=== PATIENT | female | born 1985 | race American Indian/Alaskan Native ===

== ENCOUNTER 2022-03-05 16:29 | Inpatient (IN) | payer MEDICAID ==
[2022-03-05] MEDS ORDERED: miSOPROStol 200 MCG TAB PR PRN (17:19)
[2022-03-05] MEDS ORDERED: LOPERAMIDE 2 MG CAP PO PRN (17:19)
[2022-03-05] MEDS ORDERED: ACETAMINOPHEN 325 MG TAB PO PRN (17:19)
[2022-03-05] MEDS ORDERED: LIDOCAINE (2%) 20 MG/1 ML VIAL 20 ML MDV INFILTRATI ONE (17:19)
[2022-03-05] MEDS ORDERED: METHYLERGONOVINE MALEATE 0.2 MG/ML VIAL IM PRN (17:19)
[2022-03-05] MEDS ORDERED: CARBOPROST TROMETHAMINE 250 MCG/1 ML INJ IM PRN (17:19)
[2022-03-05] MEDS ORDERED: fentaNYL 100 MCG/2 ML INJ IV PRN (17:19)
[2022-03-05] MEDS ORDERED: OXYTOCIN 10 UNIT/1 ML INJ IM PRN (17:19)
[2022-03-05] MEDS ORDERED: NalbUPHINE 10 MG/1 ML INJ IV PRN (17:19)
[2022-03-05] MEDS ORDERED: TERBUTALINE 1 MG/1 ML INJ SUB-Q PRN (17:19)
[2022-03-05] MEDS ORDERED: ePHEDrine SULFATE 50 MG/1 ML INJ IV PRN (17:19)
[2022-03-05] MEDS ORDERED: MINERAL OIL 30 ML ORAL LIQD PO PRN (17:19)
[2022-03-05] MEDS ORDERED: BUTORPHANOL 2 MG/1 ML INJ IV PRN ×2 (17:19)
[2022-03-05] MEDS ORDERED: ONDANSETRON 4 MG/2 ML INJ IV PRN ×2 (17:19→21:07)
[2022-03-05] MEDS ORDERED: LACTATED RINGERS 1,000 ML IV SCH (17:45)
[2022-03-05] MEDS ORDERED: OXYTOCIN DRIP 30 UNITS/500 ML BAG IV SCH ×3 (18:00→21:07)
[2022-03-05] MEDS ORDERED: AMPICILLIN/NS 1 GM/50 ML 1 GM/50 ML BAG IV SCH (18:00)
[2022-03-05] MEDS ORDERED: AMPICILLIN/NS 2 GM/100 ML 2 GM/100 ML BAG IV ONE ×2 (18:13→18:30)
[2022-03-05 18:49] LABS: Hematocrit 27.9 % (30.3-42.9); Hemoglobin 8.8 gm/dl (10.1-14.3)
--- NOTE | 2022-03-05 19:02 | Ultrasound Report ---
OB ultrasound Biophysical profile INDICATION: No care FINDINGS: Biophysical profile 8 out of 8 with normal heart rate 137. There is a single live int rauterine in cephalic position. FREEDOM measures 21.1 appears normal. Cervical length 2 cm. Gra de 2 placenta. Placenta is anterior and right lateral. Ultrasound age 35 weeks 4 days. Clinical age 39 weeks 4 days. Estimated weight 29 24 g. Within the cervix and may be some mild funneling identified. IMPRESSION: 1. Single live intrauterine in cephalic position. Ultrasound age 35 weeks 4 days with clini analia age 39 weeks 4 days. 2. Mild funneling of the internal os/cervix is suggested. Clinical correlation and evaluation with OB /BIOPROCESSING MANUFACTURING TECHNICIAN. Signer Name: Torrey Zhou MD Signed: 03/05/2022 6:58 PM Workstation Name: [id number]
--- NOTE | 2022-03-05 19:02 | Ultrasound Report ---
OB ultrasound Biophysical profile INDICATION: No care FINDINGS: Biophysical profile 8 out of 8 with normal heart rate 137. There is a single live int rauterine in cephalic position. FREEDOM measures 21.1 appears normal. Cervical length 2 cm. Gra de 2 placenta. Placenta is anterior and right lateral. Ultrasound age 35 weeks 4 days. Clinical age 39 weeks 4 days. Estimated weight 29 24 g. Within the cervix and may be some mild funneling identified. IMPRESSION: 1. Single live intrauterine in cephalic position. Ultrasound age 35 weeks 4 days with clini analia age 39 weeks 4 days. 2. Mild funneling of the internal os/cervix is suggested. Clinical correlation and evaluation with OB /MUTUAL FUND SALES AGENT. Signer Name: Torrey Zhou MD Signed: 03/05/2022 6:58 PM Workstation Name: [id number]
[2022-03-05 19:23] LABS: Hepatitis C Virus Antibody Non-Reactive (NonReactive)
--- NOTE | 2022-03-05 19:32 | History and Physical Report ---
History of Present Illness Date of examination: 03/05/22 Date of admission: 03/05/22 16:30 Chief complaint: LOF and ctx History of present illness: at 39.4wks by EDC 03/08/2022 by pt report, care in [facility]. Pt c/o LOF that started earlier today and now with painful ctx; denies vag bleed or headache. pt admits to movement. PT also states that she had high BP with her last preg. Pt also states she quit smoking 5months ago. Past History Past Medical History: no pertinent history Past Surgical History: no surgical history Social history: no significant social history - Obstetrical History Expected Date of Delivery: 03/08/22 Actual Gestation: 39 Week(s) 4 Day(s) : 6 Number of Living Children: 5 Medications and Allergies Allergies Allergy/AdvReac Type Severity Reaction Status Date / Time No Known Allergies Allergy Unverified 03/05/22 17:18 Active Meds: Active Medications Acetaminophen (Acetaminophen 325 Mg Tab) 650 mg PO Q4H PRN PRN Reason: Pain, Mild (1-3) Butorphanol Tartrate (Butorphanol 2 Mg/1 Ml Inj) 1 mg IV Q2H PRN PRN Reason: Pain, Moderate(4-6) LABOR PAIN Butorphanol Tartrate (Butorphanol 2 Mg/1 Ml Inj) 2 mg IV Q2H PRN PRN Reason: Pain , Severe (7-10) Carboprost Tromethamine (Carboprost Tromethamine 250 Mcg/1 Ml Inj) 250 mcg IM ONCE PRN PRN Reason: Uterine Bleeding Ephedrine Sulfate (Ephedrine Sulfate 50 Mg/1 Ml Inj) 10 mg IV Q2M PRN PRN Reason: Hypotension Fentanyl (Fentanyl 100 Mcg/2 Ml Inj) 100 mcg IV Q2H PRN PRN Reason: Pain,Severe (7-10) LABOR PAIN Oxytocin/Sodium Chloride (Pitocin/Ns 30 Unit/500ml) 30 units in 500 mls @ 2 mls/hr IV TITR TOM; Protocol Lactated Ringer's (Lactated Ringers) 1,000 mls @ 125 mls/hr IV DIRECT TOM Last Admin: 03/05/22 18:05 Dose: 125 mls/hr Oxytocin/Sodium Chloride (Pitocin/Ns 30 Unit/500ml) 30 units in 500 mls @ 40 mls/hr IV TITR TOM; Protocol Ampicillin Sodium (Ampicillin/Ns 1 Gm/50 Ml) 1 gm in 50 mls @ 100 mls/hr IV Q4H TOM; Protocol Ampicillin Sodium (Ampicillin/Ns 2 Gm/100 Ml) 2 gm in 100 mls @ 100 mls/hr IV ONCE ONE; Protocol Stop: 03/05/22 19:29 Loperamide HCl (Loperamide 2 Mg Cap) 2 mg PO ONCE PRN PRN Reason: give with Hemabate Methylergonovine Maleate (Methylergonovine Maleate 0.2 Mg/Ml Vial) 0.2 mg IM ONCE PRN PRN Reason: Uterine Bleeding Mineral Oil (Mineral Oil 30 Ml Oral Liqd) 30 ml PO QHS PRN PRN Reason: Constipation Misoprostol (Misoprostol 200 Mcg Tab) 800 mcg NE ONCE PRN PRN Reason: Uterine Bleeding Nalbuphine HCl (Nalbuphine 10 Mg/1 Ml Inj) 10 mg IV Q2H PRN PRN Reason: Pain, Moderate (4-6) Ondansetron HCl (Ondansetron 4 Mg/2 Ml Inj) 4 mg IV Q8H PRN PRN Reason: Nausea And Vomiting Oxytocin (Oxytocin 10 Unit/1 Ml Inj) 10 unit IM ONCE PRN PRN Reason: Uterine Bleeding Terbutaline Sulfate (Terbutaline 1 Mg/1 Ml Inj) 0.25 mg SUB-Q ONCE PRN PRN Reason: Hyperstimulation/Hypertonicity Review of Systems All systems: negative (LOF and ctx) - Vital Signs Vital signs: Vital Signs Pulse Pulse Ox 75 100 03/05/22 17:05 03/05/22 17:05 Temp Pulse Resp BP Pulse Ox 98.2 F 67 16 140/90 100 03/05/22 17:43 03/05/22 19:25 03/05/22 17:43 03/05/22 19:22 03/05/22 19:25 - Physical Exam Breasts: Positive: deferred Cardiovascular: Regular rate Lungs: Positive: Normal air movement Abdomen: Positive: soft Genitourinary (Female): Positive: normal external genitalia Vagina: Positive: normal moisture Uterus: Positive: enlarged (but small for gestational age) Extremities: Positive: normal - Obstetrical FHR: category 1 Uterine Contraction Monitor Mode: External Cervical Dilatation: 5 (by triage nurse) station: -4 Uterine Contraction Pattern: Irregular Uterine Contraction Intensity: Mild Results Result Diagrams: 03/05/22 17:58 Abnormal lab results 03/05/22 Range/Units 17:58 Hgb 8.8 L (10.1-14.3) gm/dl Hct 27.9 L (30.3-42.9) % All other labs normal. Assessment and Plan with u/s measuring at 33+wks but 39.4wks by pt report, SROM clear 1. Admit to labor and delivery, give amp/erythro until records obtained, steroids as well based on U/S here 2. Will do urine drug screen 3. Expect
--- NOTE | 2022-03-05 19:39 | Procedure Note ---
OB Delivery Note - Delivery Date of Delivery: 03/05/22 Surgeon: KAEL VALDERRAMA Estimated blood loss: 200cc - Vaginal Delivery presentation: vertex Delivery position: OA Intrapartum events: labor-<37 weeks, precipitous labor- <3hr Delivery induction: none Delivery monitor: external FHT, external uterine Route of delivery: Delivery placenta: spontaneous Delivery cord: 3 umbilical vessels Episiotomy: none Delivery laceration: none (slight abraision/"skid oliva" x2, no bleeding) Anesthesia: none Delivery comments: Precipitous vaginal delivery of viable female with nurse to bedside, and placenta immediately followed. Placenta evaluated appears to be complete and 3vessels. Pt evaluated and abraisions x2 seen and clots evacuated from lower uterine segment. Cytotec 800mcg placed per rectum with grand multiparity. Pt declined spec exam and no lacerations felt, cervix appears to be intact by palpation only. FOB present at delivery. Placenta sent to delivery, assuming . EFW 2290g. NICU came to delivery. - A at 1 minute: 8 at 5 minutes: 9 (wt 2290g) Infant Gender: Female
[2022-03-05] MEDS ORDERED: PROMETHAZINE 25 MG TAB PO PRN (21:07)
[2022-03-05] MEDS ORDERED: oxyCODONE /ACETAMINOPHEN 5-325MG TAB PO PRN (21:07)
[2022-03-05] MEDS ORDERED: HYDROCORTISONE 25 MG RECTAL SUPP PR PRN (21:07)
[2022-03-05] MEDS ORDERED: PROMETHAZINE 25 MG RECT SUPP PR PRN (21:07)
[2022-03-05] MEDS ORDERED: MAGNESIUM HYDROXIDE (MOM) ORAL LIQD UDC PO PRN (21:07)
[2022-03-05] MEDS ORDERED: diphenhydrAMINE 25 MG CAP PO PRN (21:07)
[2022-03-05] MEDS ORDERED: LANOLIN/ZINC/DIMETHICONE (LANSINOH) 7 GM TP PRN (21:07)
[2022-03-05] MEDS ORDERED: WITCH HAZEL/ GLYCERIN PAD TP PRN (21:07)
[2022-03-05] MEDS ORDERED: BENZOCAINE/MENTHOL 20/0.5% TOP SPRAY 56 GM TP PRN (21:07)
[2022-03-05] MEDS: IBUPROFEN 600 MG TAB PO SCH (21:15)
[2022-03-05 21:24] LABS: Amphetamine Screen,Urine Negative; Benzodiazepines Screen,Urine Negative; Cocaine Screen,Urine Negative; Methadone Screen,Urine Negative; Opiate Screen,Urine Negative
[2022-03-05 21:35] LABS: Cannabinoid Screen,Urine Positive
[2022-03-05 21:44] LABS: Color,Urine Red (Yellow); RBC,Urine > 182.0 /HPF (0.0-6.0)
[2022-03-05 21:45] LABS: Bilirubin,Urine Negative (Negative); Blood,Urine Large (Negative)
[2022-03-06] MEDS ORDERED: ceFAZolin/NS 1 GM/50 ML 1 GM/50 ML BAG IV SCH (02:00)
[2022-03-06] MEDS: IBUPROFEN 600 MG TAB PO SCH ×3 (06:33→18:09)
--- NOTE | 2022-03-06 09:55 | Progress Note ---
Assessment and Plan PPD#1 with asymptomatic anemia, positive marijuana abuse 1. routine care 2. Social work consult with substance abuse 3. Will do cbc now and give iron supplement. 4. pt declines covid testing therefore has been on isolation per hospital policy All questions encouraged and answered Subjective Date of service: 03/06/22 Principal diagnosis: PPD#1 Interval history: pt states that she has vag bleed like a period and no clots, pt is bottle feeding and denies pelvic pain. pt ok to go home tomorrow. Still trying to get her prenatals from [facility]. Objective - Constitutional Vitals: Vital Signs - 12hr 03/06/22 03/06/22 03/06/22 00:22 04:00 08:28 Temperature 98.6 F 98.6 F Pulse Rate 64 77 Respiratory 18 16 Rate Blood Pressure 96/66 Blood Pressure 101/74 [Left] O2 Sat by Pulse 100 Oximetry O2 Sat by Pulse 99 Oximetry [ Anterior Bilateral Throughout] 03/06/22 08:46 Temperature 97.9 F Pulse Rate 63 Respiratory 18 Rate Blood Pressure 127/82 Blood Pressure [Left] O2 Sat by Pulse 100 Oximetry O2 Sat by Pulse Oximetry [ Anterior Bilateral Throughout] General appearance: Present: no acute distress - Neck Neck: normal ROM - Breasts Breasts: deferred - Cardiovascular Rhythm: regular Extremities: No edema - Gastrointestinal General gastrointestinal: Present: soft, non-tender - Genitourinary Female genitourinary: other (Fundus firm at the level of the umbilicus and no tenderness) - Integumentary Integumentary: warm, dry - Labs CBC & Chem 7: 03/05/22 17:58 Labs: Abnormal lab results 03/05/22 03/05/22 Range/Units 17:58 20:44 Hgb 8.8 L (10.1-14.3) gm/dl Hct 27.9 L (30.3-42.9) % Urine Blood Large A (Negative) Urine WBC (Auto) 15.0 H (0.0-6.0) /HPF Medications & Allergies - Medications Allergies/Adverse Reactions: Allergies No Known Allergies Allergy (Unverified 03/05/22 17:18) Active Medications: Generic Name Dose Route Start Last Admin Trade Name Freq PRN Reason Stop Dose Admin Acetaminophen 650 mg 03/05/22 17:19 Acetaminophen 325 Mg Tab PO Q4H PRN Pain, Mild (1-3) Benzocaine/Menthol 1 spray 03/05/22 21:07 Benzocaine/Menthol 20/0.5% Top [place] 56 Gm TP PRN PRN Episiotomy Pain Bisacodyl 10 mg 03/05/22 21:07 03/05/22 21:15 Bisacodyl 10 Mg Rect Supp [place] 10 mg BID PRN Administration Constipation Carboprost Tromethamine 250 mcg 03/05/22 17:19 Carboprost Tromethamine 250 Mcg/1 Ml Inj IM ONCE PRN Uterine Bleeding Diphenhydramine HCl 25 mg 03/05/22 21:07 Diphenhydramine 25 Mg Cap PO Q6H PRN Itching Hydrocortisone Acetate 25 mg 03/05/22 21:07 Hydrocortisone 25 Mg Rectal Supp [place] BID PRN Hemorrhoids Lactated Ringer's 1,000 mls @ 125 mls/hr 03/05/22 17:45 03/05/22 18:05 Lactated Ringers IV 125 mls/hr DIRECT TOM Administration Oxytocin/Sodium Chloride 30 units in 500 mls @ 40 mls/hr 03/05/22 21:07 Pitocin/Ns 30 Unit/500ml IV TITR TOM Protocol Ibuprofen 600 mg 03/05/22 21:07 03/06/22 06:33 Ibuprofen 600 Mg Tab PO 600 mg Q6HR TOM Administration Loperamide HCl 2 mg 03/05/22 17:19 Loperamide 2 Mg Cap PO ONCE PRN give with Hemabate Magnesium Hydroxide 30 ml 03/05/22 21:07 Magnesium Hydroxide (Mom) Oral Liqd Udc PO HS PRN Constipation Methylergonovine Maleate 0.2 mg 03/05/22 17:19 Methylergonovine Maleate 0.2 Mg/Ml Vial IM ONCE PRN Uterine Bleeding Mineral Oil 30 ml 03/05/22 17:19 Mineral Oil 30 Ml Oral Liqd PO QHS PRN Constipation Multi-Ingredient Ointment 1 applic 03/05/22 21:07 Lanolin/Zinc/Dimethicone (Lansinoh) 7 Gm TP PRN PRN Sore Nipples Multivitamins/Iron/Calcium 1 each 03/06/22 10:00 [id number] Fumarate-Folic Acid Vit Tab PO QDAY TOM Ondansetron HCl 4 mg 03/05/22 21:07 Ondansetron 4 Mg/2 Ml Inj IV Q8H PRN Nausea And Vomiting Oxycodone/Acetaminophen 2 tab 03/05/22 21:07 Oxycodone /Acetaminophen 5-325mg Tab PO Q6H PRN Pain, Moderate (4-6) Oxytocin 10 unit 03/05/22 17:19 Oxytocin 10 Unit/1 Ml Inj IM ONCE PRN Uterine Bleeding Promethazine HCl 25 mg 03/05/22 21:07 Promethazine 25 Mg Rect Supp [place] Q6H PRN Nausea And Vomiting Promethazine HCl 25 mg 03/05/22 21:07 Promethazine 25 Mg Tab PO Q6H PRN Nausea And Vomiting Sodium Chloride 10 ml 03/05/22 21:07 Sodium Chloride 0.9% 10 Ml Flush Syringe IV PRN PRN LINE FLUSH Witch Sonam/Glycerin 1 each 03/05/22 21:07 Witch Sonam/ Glycerin Pad TP PRN PRN Hemorrhoid/cleansing/soothing
[2022-03-06] MEDS: FERROUS SULFATE 325 MG TAB PO SCH ×2 (12:06→22:42)
[2022-03-06] MEDS: PRENATAL VIT27-FE FUMARATE-FOLIC ACID VIT TAB PO SCH (12:07)
[2022-03-06 13:58] LABS: Hematocrit 25.6 % (30.3-42.9); Hemoglobin 8.3 gm/dl (10.1-14.3); Mean Corpuscular HGB Conc 32 % (30-34); Mean Corpuscular Volume 81 fl (79-97); Platelet Count 180 K/mm3 (140-440); Red Blood Count 3.16 M/mm3 (3.65-5.03); Red Cell Distribution Width 17.6 % (13.2-15.2)
[2022-03-06] MEDS: ASCORBIC ACID 500 MG TAB PO SCH ×2 (14:01→22:42)
[2022-03-07] MEDS: IBUPROFEN 600 MG TAB PO SCH ×2 (02:31→09:53)
[2022-03-07] MEDS: PRENATAL VIT27-FE FUMARATE-FOLIC ACID VIT TAB PO SCH (09:52)
[2022-03-07] MEDS: FERROUS SULFATE 325 MG TAB PO SCH (09:52)
[2022-03-07] MEDS: ASCORBIC ACID 500 MG TAB PO SCH (09:53)
--- NOTE | 2022-03-07 15:53 | Progress Note ---
Assessment and Plan A S/P PPD #2 Anemia stable Pt.stable marijuana use P D/C home Daily iron Social service consult done F/u in office in 6 weeks for PP care Subjective Date of service: 03/07/22 Principal diagnosis: PPD#2 Interval history: Pt. without complain. Normal lochia. Ambulating witout SOB or chest pain Objective - Constitutional Vitals: Vital Signs - 12hr 03/07/22 03/07/22 08:18 08:30 Temperature 97.7 F Pulse Rate 59 L Respiratory 20 Rate Blood Pressure 143/87 O2 Sat by Pulse 100 Oximetry O2 Sat by Pulse 98 Oximetry [ Anterior Bilateral Throughout] General appearance: Present: no acute distress Extremities: No edema, normal color - Gastrointestinal General gastrointestinal: Present: soft, non-tender - Genitourinary Female genitourinary: other (Uterus firm) - Labs CBC & Chem 7: 03/06/22 13:36 Medications & Allergies - Medications Allergies/Adverse Reactions: Allergies No Known Allergies Allergy (Unverified 03/05/22 17:18) Home Medications: Home Medications Medication Instructions Recorded Confirmed Last Taken Type No Known Home Medications [No 03/07/22 03/07/22 Unknown History Reported Home Medications] Active Medications: Generic Name Dose Route Start Last Admin Trade Name Freq PRN Reason Stop Dose Admin Acetaminophen 650 mg 03/05/22 17:19 Acetaminophen 325 Mg Tab PO Q4H PRN Pain, Mild (1-3) Ascorbic Acid 500 mg 03/06/22 14:00 03/07/22 09:53 Ascorbic Acid 500 Mg Tab PO 500 mg BID TOM Administration Benzocaine/Menthol 1 spray 03/05/22 21:07 Benzocaine/Menthol 20/0.5% Top [place] 56 Gm TP PRN PRN Episiotomy Pain Bisacodyl 10 mg 03/05/22 21:07 03/05/22 21:15 Bisacodyl 10 Mg Rect Supp [place] 10 mg BID PRN Administration Constipation Carboprost Tromethamine 250 mcg 03/05/22 17:19 Carboprost Tromethamine 250 Mcg/1 Ml Inj IM ONCE PRN Uterine Bleeding Diphenhydramine HCl 25 mg 03/05/22 21:07 Diphenhydramine 25 Mg Cap PO Q6H PRN Itching Ferrous Sulfate 325 mg 03/06/22 12:00 03/07/22 09:52 Ferrous Sulfate 325 Mg Tab PO 325 mg BID TOM Administration Hydrocortisone Acetate 25 mg 03/05/22 21:07 Hydrocortisone 25 Mg Rectal Supp [place] BID PRN Hemorrhoids Lactated Ringer's 1,000 mls @ 125 mls/hr 03/05/22 17:45 03/05/22 18:05 Lactated Ringers IV 125 mls/hr DIRECT TOM Administration Oxytocin/Sodium Chloride 30 units in 500 mls @ 40 mls/hr 03/05/22 21:07 Pitocin/Ns 30 Unit/500ml IV TITR [facility] Protocol Ibuprofen 600 mg 03/05/22 21:07 03/07/22 09:53 Ibuprofen 600 Mg Tab PO 600 mg Q6HR TOM Administration Loperamide HCl 2 mg 03/05/22 17:19 Loperamide 2 Mg Cap PO ONCE PRN give with Hemabate Magnesium Hydroxide 30 ml 03/05/22 21:07 Magnesium Hydroxide (Mom) Oral Liqd Udc PO HS PRN Constipation Methylergonovine Maleate 0.2 mg 03/05/22 17:19 Methylergonovine Maleate 0.2 Mg/Ml Vial IM ONCE PRN Uterine Bleeding Mineral Oil 30 ml 03/05/22 17:19 Mineral Oil 30 Ml Oral Liqd PO QHS PRN Constipation Multi-Ingredient Ointment 1 applic 03/05/22 21:07 Lanolin/Zinc/Dimethicone (Lansinoh) 7 Gm TP PRN PRN Sore Nipples Multivitamins/Iron/Calcium 1 each 03/06/22 10:00 03/07/22 09:52 [id number] Fumarate-Folic Acid Vit Tab PO 1 each QDAY TOM Administration Ondansetron HCl 4 mg 03/05/22 21:07 Ondansetron 4 Mg/2 Ml Inj IV Q8H PRN Nausea And Vomiting Oxycodone/Acetaminophen 2 tab 03/05/22 21:07 Oxycodone /Acetaminophen 5-325mg Tab PO Q6H PRN Pain, Moderate (4-6) Oxytocin 10 unit 03/05/22 17:19 Oxytocin 10 Unit/1 Ml Inj IM ONCE PRN Uterine Bleeding Promethazine HCl 25 mg 03/05/22 21:07 Promethazine 25 Mg Rect Supp [place] Q6H PRN Nausea And Vomiting Promethazine HCl 25 mg 03/05/22 21:07 Promethazine 25 Mg Tab PO Q6H PRN Nausea And Vomiting Sodium Chloride 10 ml 03/05/22 21:07 Sodium Chloride 0.9% 10 Ml Flush Syringe IV PRN PRN LINE FLUSH Witch Sonam/Glycerin 1 each 03/05/22 21:07 Witch Sonam/ Glycerin Pad TP PRN PRN Hemorrhoid/cleansing/soothing
[2022-03-07 16:28] VITALS: BP 136/85
--- NOTE | 2022-03-07 17:02 | Discharge Summary ---
Providers - Providers Date of Admission: 03/05/22 16:30 Date of discharge: 03/07/22 Attending physician: KAEL VALDERRAMA 03/06/22 10:52 Consult to Case Management [CONS] Routine Services Needed at Discharge: Preparation Supervisor Freezing Comment:: positive marijuana in urine Primary care physician: KAEL VALDERRAMA Hospitalization Delivery: Laceration: none Other procedures: none complications: none, pelvic infection baby: female Condition at discharge: Good Disposition: 01 HOME / SELF CARE / HOMELESS Plan - Discharge Medications Prescriptions: Ferrous Sulfate [Feosol 325 MG tab] 325 mg PO BID #60 tablet Ibuprofen [Motrin 600 MG tab] 600 mg PO Q6HR PRN #30 tablet NS PRN Reason: Pain, Moderate (4-6) - Provider Discharge Summary Activity: no sex for 6 weeks, no heavy lifting 4 weeks, no strenuous exercise Diet: routine Instructions: routine Additional instructions: [] Smoking cessation referral if applicable(refer to patient education folder for contact #) [] Refer to [facility]'s [facility] Booklet Call your doctor immediately for: * Fever > 100.5 * Heavy vaginal bleeding ( >1 pad per hour) * Severe persistent headache * Shortness of breath * Reddened, hot, painful area to leg or breast * Drainage or odor from incision. * Keep incision clean and dry at all times and follow doctor's instructions regarding bathing/showering - Follow up plan Follow up: KAEL VALDERRAMA MD [Primary Care Provider] - 7 Days
== END 2022-03-07 18:45 | disposition home or self-care (01) | DRG 775 ==
LOC: TRG 16:29 → LD 16:29 → TRG 17:26 → OB 21:46
PROVIDERS: ADMIT Obstetrics & Gynecology; ATTEND Obstetrics & Gynecology
PROC: 10E0XZZ Delivery of Products of Conception, External Approach (ICD-10-PCS; principal; 2022-03-05)
DX: O60.14X0 Preterm labor third trimester with preterm delivery third trimester, not applicable or unspecified (principal); O99.324 Drug use complicating childbirth; Z37.0 Single live birth; O62.3 Precipitate labor; F12.10 Cannabis abuse, uncomplicated; O90.81 Anemia of the puerperium; Z3A.33 33 weeks gestation of pregnancy
CPT/HCPCS: 36415; 76816; 76819; 80307; 81001; 85014; 85018; 85027; 86592; 86706; 86762; 86803; 86850; 86900; 86901; 87086; 87806; 88307; G0378; J7120